=== PATIENT | female | born 1975 | race Caucasian/White ===

== ENCOUNTER 2019-12-22 16:37 | Emergency (ER) | payer OTHER ==
[~2019-12-22] VITALS: Ht 160 cm; Wt 56.8 kg
[2019-12-22] MEDS ORDERED: fentaNYL PF VIAL 100 MCG/2 ML VIAL ONE (16:51)
[2019-12-22] MEDS ORDERED: IV NORMAL SALINE 1000ML BAG 1,000 ML IV ONE (17:00)
[2019-12-22] MEDS ORDERED: ONDANSETRON PF 4 MG/2 ML VIAL. IV ONE (17:00)
[2019-12-22] MEDS ORDERED: fentaNYL PF VIAL 100 MCG/2 ML VIAL IV ONE (17:00)
[2019-12-22] MEDS ORDERED: LIDOCAINE 1% PF 2 ML VIAL. INJ ONE (17:15)
[2019-12-22] MEDS ORDERED: DIPH,PERTUSS(ACELL),TET VAC/PF 0.5 ML SYRINGE. VAX IM ONE (17:15)
[2019-12-22] MEDS ORDERED: BUPIVACAINE MPF 0.5% 30 ML VIAL. INJ ONE (17:15)
--- NOTE | 2019-12-22 17:19 | RAD ---
HAND RIGHT 3V History: Reason: R thumb pain impaled with foreign object / Spl. Instructions: / History: Technique: 3 views right hand. Comparison: None. Findings: Metallic foreign body projecting over the right first distal phalanx with soft tissue injury. Impression: 1. Metallic foreign body projecting over the right first distal phalanx. Lateral radiograph of the first digit can better delineate positioning clinically warranted. Electronically signed by: Luis Willard DO (12/22/2019 5:16 PM) BRIANNE
[2019-12-22] MEDS ORDERED: fentaNYL PF VIAL 100 MCG/2 ML VIAL IVP ONE (17:45)
[2019-12-22] MEDS ORDERED: CIPR500T94 PO (19:17)
[2019-12-22] MEDS ORDERED: NAPR-514 PO (19:17)
--- NOTE | 2019-12-22 19:17 | PHYS DOC ---
Past Medical History Past Medical History: Other Additional Past Medical Histor: Autoimmune, Sjogren's, Rheumatoid arthritis Past Surgical History: , Tonsillectomy, Other Additional Past Surgical Histo: C5-6 removed; back sx Smoking Status: Current Every Day Smoker Alcohol Use: None Drug Use: None General Adult EDM: Chief Complaint: TRAUMA ALERT HPI: HPI: Patient is a 44 year old female who presents to the emergency department with complaints of a piece of metal through her right thumb. Patient states she was throwing away some junk metal scrap yard when a piece of metal accidentally went through the volar aspect of her right thumb distal to the DIP. She denies any numbness, tingling, or decreased sensation of the right thumb. She is unsure when her last tetanus shot was. Patient complains that the pain is a 10 out of 10 on the pain scale she denies any alleviating or exacerbating factors. Review of Systems: Review of Systems: Constitutional: Denies fever or chills. [] Musculoskeletal: Denies back pain or joint pain. [] Integument: See HPI Neurologic: Denies focal weakness or sensory changes. [] Psychiatric: Denies depression or anxiety. [] Heart Score: Risk Factors: Risk Factors: DM, Current or recent (<one month) smoker, HTN, HLP, family history of CAD, obesity. Risk Scores: Score 0 - 3: 2.5% MACE over next 6 weeks - Discharge Home Score 4 - 6: 20.3% MACE over next 6 weeks - Admit for Clinical Observation Score 7 - 10: 72.7% MACE over next 6 weeks - Early Invasive Strategies Current Medications: Current Medications Medications (Trade) Dose Ordered Sig/Farhan Start Time Stop Time Status Last Admin Dose Admin Bupivacaine HCl (Sensorcaine Mpf 0.5%) 30 ml 1X ONCE 12/22/19 17:15 12/22/19 17:16 DC 12/22/19 17:18 30 ML Diphtheria/ Tetanus/Acell Pertussis (ADACEL TDap SYRINGE) 0.5 ml ONCE ONCE 12/22/19 17:15 12/22/19 17:16 DC 12/22/19 17:17 0.5 ML Fentanyl Citrate (Fentanyl 2ml Vial) 50 mcg 1X ONCE 12/22/19 17:45 12/22/19 17:46 DC 12/22/19 17:44 50 MCG Lidocaine HCl (Xylocaine-Mpf 1% 2ml Vial) 4 ml 1X ONCE 12/22/19 17:15 12/22/19 17:16 DC 12/22/19 17:18 4 ML Ondansetron HCl (Zofran) 4 mg 1X ONCE 12/22/19 17:00 12/22/19 17:01 DC 12/22/19 16:56 4 MG Sodium Chloride 1,000 ml @ 1,000 mls/hr 1X ONCE 12/22/19 17:00 12/22/19 17:59 DC 12/22/19 16:55 1,000 MLS/HR Allergies: Allergies: Allergies Coded Allergies Type Severity Reaction Last Updated Verified Penicillins Allergy Intermediate 06/15/14 No Pork/Porcine Containing Products Allergy Intermediate 06/15/14 No Sulfa (Sulfonamide Antibiotics) Allergy Intermediate 06/15/14 No carrot Allergy Intermediate 06/15/14 No celery Allergy Intermediate 06/15/14 No cephalexin Allergy Intermediate 06/15/14 No chocolate flavor Allergy Intermediate 06/15/14 No hydrocodone Allergy Intermediate 06/15/14 No wheat Allergy Intermediate 06/15/14 No Uncoded Allergies Type Severity Reaction Last Updated Verified beans Allergy Intermediate 06/15/14 Physical Exam: PE: Constitutional: Well developed, well nourished, no acute distress, non-toxic appearance. [] HENT: Normocephalic, atraumatic, bilateral external ears normal, nose normal. [] Eyes: PERRLA, EOMI, conjunctiva normal, no discharge. [] Neck: Normal range of motion, no stridor. [] Cardiovascular:Heart rate regular rhythm Lungs & Thorax: Respirations even and unlabored, no retractions, no respiratory distress Skin: Left thumb: Foreign body present in the volar aspect of the left thumb distal to the DIP, no active bleeding; following removal of the foreign body there is a 1 cm laceration/entrance wound just above the DIP with a 0.25 cm exit wound at the distal portion of the volar surface of the right thumb Extremities: No cyanosis, ROM intact, no edema. [] Neurologic: Alert and oriented X 3, no focal deficits noted. [] Psychologic: Affect normal, judgement normal, mood normal. [] Current Patient Data: Vital Signs: Vital Signs Date Time Temp Pulse Resp B/P (MAP) Pulse Ox O2 Delivery O2 Flow Rate FiO2 12/22/19 17:44 16 100 Room Air 12/22/19 16:42 98.8 111 120/84 (96) 98.8 EKG: EKG: [] Radiology/Procedures: Radiology/Procedures: Indication: Foreign body to right thumb Procedure: The area of the foreign body was anesthetized with a digital finger block consisting of equal parts bupivacaine and lidocaine. The foreign body was then removed by myself. Following the procedure the wound was irrigated with approximately 750 mL of sterile normal saline and thoroughly scrubbed with a chlorhexidine scrub. The patient's tetanus status updated. The patient tolerated the procedure well, there were no complications, minimal blood loss. Laceration Repair by me: Anesthesia: Digital block as documented above Location: Proximal wound to right thumb Tendon/Joint/Nerves: No injury Foreign body: None detected after copious irrigation and exploration as documented above Technique: 2 simple Interrupted Sutures with 5-0 Ethilon, loosely placed Complexity: No subcutaneous sutures/mucosal repair/edge excision Post Closure Length: 1.5 cm Patient's bleeding was easily controlled in the department and there is no indication of anemia. No evidence of compartment syndrome, neurologic injury, vascular injury, open joint, tendon laceration, or foreign body. Patient is appropriate for outpatient follow up. The exit wound of the foreign body was not closed with sutures as it measured less than 0.25 cm and there was high risk of infection following the injury. Course & Med Decision Making: Course & Med Decision Making Pertinent Labs and Imaging studies reviewed. (See chart for details) [] Queenie Disclaimer: Queenie Disclaimer: This electronic medical record was generated, in whole or in part, using a voice recognition dictation system. Departure Departure Impression: Primary Impression: Laceration of right thumb with foreign body without damage to nail Qualified Codes: S61.021A - Laceration with foreign body of right thumb without damage to nail, initial encounter Additional Impressions: Foreign body of thumb, right Qualified Codes: S60.351A - Superficial foreign body of right thumb, initial encounter Need for Tdap vaccination Disposition: HOME, SELF-CARE Condition: STABLE Referrals: UNKNOWN PCP NAME (PCP) Patient Instructions: Foreign Body-Brief, Laceration Care, Adult, Oynw-on-Gdgi, VIS, Tetanus, Diphtheria (Td); Tetanus, Diphtheria, Pertussis (Tdap) - CDC Additional Instructions: Fill the prescriptions and use them as directed. Keep the area clean and dry. You may take also take Tylenol as needed for pain. Keep the dressing that was placed today on for 24 hours then change the dressing twice a day and apply antibiotic ointment to the area. Follow-up with your primary care doctor, or return to the emergency room in 10-14 days to have the sutures removed, sooner if you develop signs of infection including: redness, warmth, drainage, or a fever. Scripts Naproxen (NAPROXEN) 500 Mg Tablet 1 TAB PO BID for pain for 10 Days, #20 TAB 0 Refills Prov: DEVON MCCURDY APRN 12/22/19 Ciprofloxacin Hcl (CIPRO) 500 Mg Tablet 1 TAB PO BID for 7 Days, #14 TAB 0 Refills Prov: DEVON MCCURDY APRN 12/22/19 Justicifation of Admission Dx: Justifications for Admission: Justification of Admission Dx: N/A DEVON MCCURDY APRN Dec 22, 2019 19:17
[2019-12-22 19:24] VITALS: BP 126/69
[2019-12-22] MEDS ORDERED: NEOMY/BACITR/POLYMYXIN OINT PACKET. TP ONE (19:30)
== END 2019-12-22 19:31 | disposition home or self-care (01) ==
LOC: ER 16:37
DX: S61.021A Laceration with foreign body of right thumb without damage to nail, initial encounter (principal); S60.351A Superficial foreign body of right thumb, initial encounter; F17.200 Nicotine dependence, unspecified, uncomplicated; Z88.0 Allergy status to penicillin; Z88.1 Allergy status to other antibiotic agents; Z88.2 Allergy status to sulfonamides; Z88.5 Allergy status to narcotic agent; Z91.018 Allergy to other foods; Y28.8XXA Contact with other sharp object, undetermined intent, initial encounter; Y93.89 Activity, other specified; Y92.89 Other specified places as the place of occurrence of the external cause; Y99.8 Other external cause status
CPT/HCPCS: 12041; 73130; 90471; 90715; 96361; 96374; 96375; 96376; 99285; J2405; J3010; J3490; J7030; 12001; 12031; 64450